=== PATIENT | female | born 1965 | race Two or more races ===

== ENCOUNTER 2018-02-09 05:48 | Inpatient (IN) ==
[~2018-02-09] VITALS: Ht 165.1 cm; Wt 76.2 kg
[2018-02-09] VITALS (7 sets, daily range): BP systolic 114–131; BP diastolic 72–91
--- NOTE | 2018-02-09 06:15 | NUR ---
MS RN OPENING NOTES: RECEIVED PT AND IS A/OX4. PT ON ROOM AIR AND TOLERATING WELL. NO SOB NOTED. IV TO BE STARTED FOR SURGERY. NO SOB NOTED. NO S/S OF DISTRESS. CALL LIGHT WITHIN PT'S REACH. BED KEPT IN LOW, LOCKED POSITION, AND SIDE RAILS X 2UP. WILL CONTINUE TO MONITOR PT.
[2018-02-09] MEDS ORDERED: HYDROMORPHONE INJ 2 MG/ML DISP.SYRIN ONE (06:33)
[2018-02-09] MEDS ORDERED: ANESTHESIA TRAY IN PYXIS 1 EA TRAY MC ONE (06:33)
[2018-02-09] MEDS ORDERED: ROCURONIUM BROMIDE 50 MG/5 ML ONE (06:33)
[2018-02-09] MEDS ORDERED: MIDAZOLAM HCL 2 MG/2ML VIAL ONE (06:33)
[2018-02-09] MEDS ORDERED: VANCOMYCIN 1 GM VIAL ONE (06:52)
[2018-02-09] MEDS ORDERED: BACITRACIN 50000 UNITS/VIAL ONE (06:52)
[2018-02-09] MEDS ORDERED: DESFLURANE 240 ML BOTTLE IH ONE (07:13)
[2018-02-09] MEDS ORDERED: PROPOFOL 200 ML ONE (07:13)
[2018-02-09] MEDS ORDERED: OXYC30TA2 PO (07:20)
[2018-02-09] MEDS ORDERED: ALPR2TAB7 PO (07:20)
[2018-02-09] MEDS ORDERED: CYCL10TA9 PO (07:20)
[2018-02-09] MEDS ORDERED: KETAMINE HCL (500MG/10ML) 50 MG/ML VIAL ONE (07:27)
[2018-02-09] MEDS ORDERED: GENTAMICIN 80 MG/2 ML VIAL ONE (08:32)
[2018-02-09] MEDS ORDERED: HEMOSTATIC MATRIX 10 ML 1 EACH PAD MC ONE (09:01)
[2018-02-09] MEDS ORDERED: BACITRACIN OPHTH OINT 3.5 GM TUBE ONE (11:22)
[2018-02-09] MEDS ORDERED: HYDROGEN PEROXIDE 480 ML BOTTLE ONE (12:33)
--- NOTE | 2018-02-09 14:00 | NUR ---
RN NOTES RECEIVED PATIENT FROM OR, ALERT AND ORIENTED X4, ABLE TO MAKE NEEDS KNOWN, ON OXYGEN SUPPORT VIA NASAL CANNULA WITH 3 LPM, SATURATING AT 99%, PLACED ON TELEMONITOR, SINUS RHYTHM HR AT 61 BPM, DENIES CHEST PAIN, PAIN ON THE SURGICAL SITE 01/04- WILL ADMINISTER PAIN MEDICATION, IV LINE G 18 ON THE LEFT AC AND G 20 ON THE LEFT HAND, INTACT AND IN PLACE, PATENT ON FLUSHING. PATIENT REORIENTED ON THE FLOOR, ENCOURAGED VERBALIZATION OF FEELINGS AND CONCERN, SAFETY MEASURES IN PLACE, ASPIRATION PRECAUTIONS IN PLACED, WILL CONTINUE TO ASSESS AND MONITOR PATIENT.
[2018-02-09] MEDS ORDERED: DOCUSATE SODIUM 250 MG CAPSULE PO PRN ×2 (14:30)
[2018-02-09] MEDS ORDERED: IV NS 0.9% 1,000 ML BAG IV PRN (14:30)
[2018-02-09] MEDS ORDERED: ONDANSETRON HCL/PF 4 MG/2 ML VIAL IV PRN (14:30)
[2018-02-09] MEDS ORDERED: HYDROMORPHONE MDV 30 MG in IV NS 0.9% 15 ML, PCA TOTAL VOLUME 1 BAG IV PRN ×3 (14:30)
[2018-02-09] MEDS ORDERED: HYDROCODONE/APAP 5/325MG 1 EACH TABLET PO PRN (14:30)
[2018-02-09] MEDS ORDERED: ALPRAZOLAM 0.25 MG TABLET PO PRN (14:30)
[2018-02-09] MEDS ORDERED: BISACODYL SUPP (10 MG) 10 MG/SUPP.RECT SUPP.RECT RC PRN ×2 (14:30)
[2018-02-09] MEDS ORDERED: NALOXONE HCL 0.4 MG/ML AMPUL IV PRN (14:30)
[2018-02-09] MEDS: IV NS 0.9% 1,000 ML IV PRN (15:13)
[2018-02-09] MEDS ORDERED: PHENOL/SODIUM PHENOLATE 1 BOTTLE MM PRN (17:30)
--- NOTE | 2018-02-09 19:30 | NUR ---
RN NOTES ENDORSED PATIENT FOR CONTINUITY OF CARE. NO ACUTE CHANGES WITHIN THE SHIFT, STILL ON OXYGEN SUPPORT VIA NASAL CANNULA WITH 3 LPM, SATURATING 100%, STILL ON SOLAR ENERGY TECHNICIAN (DILAUDID 1MG/ML) TOTAL OF 1.4 MG GIVEN SINCE ADMINISTRATION WAS STARTED. ALL NEEDS ATTENDED AND MET. CALL LIGHT WITHIN REACH AT ALL TIMES. SAFETY AND ASPIRATION MEASURES IN PLACE.
--- NOTE | 2018-02-09 20:00 | NUR ---
GOYO/RN NOTES: RECEIVED PT. IN BED W/ HOB ELEVATED. W/ FRIEND AT BEDSIDE. ON TELE MONITOR W/ SR @ 74. W/ DRESSING C/D/I TO THE NECK AREA W/ LEISA DRAIN INTACT W/ SEROSANGUINEOUS OUTPUT. CONTINENT OF BOWEL. F/C INTACT AND PATENT DRAINING VIA GRAVITY. W/ DILAUDID SUPERVISORY AIDE OF 0.2 MG Q 7 MIN. 4 HR LIMIT 6 MG. CALL LIGHT W/ REACH. ON CLEAR LIQUIDS. W/ RAC G 20 PATENT AND INTACT W/ NO S/S OF INFECTION/INFILTRATION NOTED. W/ LH G 18 PATENT AND INTACT W/ NO S/S OF INFECTION/INFILTRATION NOTED. ON CLEAR LIQUIDS. W/ SCD ON. DR. PEREZ CALLED X 2 W/ ORDERS NOTED AND CARRIED OUT. WILL CONTINUE TO MONITOR .
[2018-02-09] MEDS: ANCEF 1 GM/50 ML D5W IV SCH ×2 (20:19)
[2018-02-09] MEDS: ONDANSETRON HCL/PF 4 MG/2 ML VIAL IV PRN (21:43)
[2018-02-10] VITALS: BP 120/70
[2018-02-10] MEDS: ANCEF 1 GM/50 ML D5W IV SCH ×6 (03:14→20:26)
[2018-02-10] MEDS: ONDANSETRON HCL/PF 4 MG/2 ML VIAL IV PRN (03:36)
[2018-02-10] MEDS: ACETAMINOPHEN 325 MG TABLET PO PRN (03:57)
[2018-02-10] MEDS: IV NS 0.9% 1,000 ML IV PRN (03:58)
[2018-02-10 04:00] VITALS: BP 129/77
[2018-02-10 06:27] LABS: BASOPHILS % (AUTO) 0.2 % (0.0-2.0); EOSINOPHILS % (AUTO) 0.3 % (0.0-6.0); HEMATOCRIT 37 % (33-45); HEMOGLOBIN 11.1 g/dL (11.5-14.8); LYMPHOCYTES # (AUTO) 1.6 /CMM (0.8-4.8); LYMPHOCYTES % (AUTO) 15.6 % (20.0-44.0); MEAN CORPUSCULAR HGB CONC 30 g/dl (31.0-36.0); MEAN CORPUSCULAR VOLUME 76 fL (82-100); MONOCYTES # (AUTO) 0.6 /CMM (0.1-1.30); NEUTROPHILS # (AUTO) 7.8 /CMM (1.8-8.9); NEUTROPHILS % (AUTO) 77.9 % (43.0-81.0); PLATELET COUNT (AUTO) 318 /CMM (150-450); RDW COEFFICIENT OF VARIATION 29.6 (11.5-15.0); RED BLOOD CELL COUNT(AUTO) 4.94 MIL/uL (4.0-5.2); WHITE BLOOD COUNT (AUTO) 10.1 K/uL (4.3-11.0)
[2018-02-10 06:43] LABS: CALCIUM, SERUM 8.8 mg/dL (8.5-10.1); CREATININE 0.7 mg/dL (0.6-1.3); PHOSPHORUS 3.5 mg/dL (2.5-4.9)
[2018-02-10] MEDS ORDERED: KEY,NONCONTROL,TO KEEP IN PYXI 1 EA MC ONE ×2 (07:27→10:07)
[2018-02-10] MEDS ORDERED: HYDROMORPHONE 1 MG/1 ML DISP.SYRIN IV PRN (07:30)
[2018-02-10] MEDS ORDERED: oxyCODONE/APAP (5/325 MG) 1 UDTAB TABLET PO PRN ×2 (07:30→08:00)
--- NOTE | 2018-02-10 07:30 | NUR ---
RN NOTE RECEIVED PT AOX3, ON BED, NO SOB NOTED, HOD 45 DEGREE, SOIL CHECKER RUNNINGS BUT ACCORDING TO SOIL CHECKER PUMP PT REQUESTED ONLY ONE DOSE. PT CO PAIN 9/10 IN NECK. SOIL CHECKER PUMP TO D/C AT THIS TIME, IVF RUNNING NS AT 80 M/HR, IV SITES INTACT, PATENT, LEISA DRAIN IN PLACE MINIMAL OUTPUT, SEROSANGUINOUS COLOR, PT REPORTS SMALL MUSCLE SPASMS IN THE NECK AROUND THE DRAIN INSERTION SITE. PT HAS WEAKNESS IN HANDS RIGHT WEAKER THAN LEFT. ABLE TO MOVE LEGS AND FEET. CALL LIGHT WITHIN REACH, CLEAR LIQUID DIET ORDERED, ABLE TO SWALLOW CRUSHED MEDS WITH JELLO.
--- NOTE | 2018-02-10 07:49 | NUR ---
GOYO/RN NOTES: REPORT GIVEN TO AM NURSE FOR SIENNA.
[2018-02-10 08:00] VITALS: BP 119/71
[2018-02-10] MEDS: oxyCODONE/APAP (5/325 MG) 1 UDTAB TABLET PO PRN ×4 (08:49→22:05)
--- NOTE | 2018-02-10 09:40 | NUR ---
RN NOTE REPORT GIVEN TO TANIKA CHEN FOR SIENNA. PT STABLE.
--- NOTE | 2018-02-10 09:40 | NUR ---
RN NOTES RECEIVED PATIENT IN BED. ALERT AND ORIENTED X4, ABLE TO MAKE NEEDS KNOWN. ON OXYGEN SUPPORT VIA NASAL CANNULA WITH 3LPM, SATURATING WELL, DENIES ANY CHEST PAIN BUT WITH COMPLAINTS OF PAIN ON THE SURGERY SITE, WILL ADMINISTER DUE PAIN MEDICATION. SINUS RHYTHM ON TELE WITH HR AT 70'S, WITH LEISA DRAIN C/D/I DRAINING TO SEROSANGUINEOUS DRAINAGE, IVL: G 18 AND G 20 ON THE LEFT HAND BOTH IN PLACE, INTACT AND PATENT ON FLUSHING,PATIENT AMBULATORY, ENCOURAGE TO CALL FOR ASSISTANCE, CALL LIGHT WITHIN EASY REACH, WILL CONTINUE TO MONITOR AND ASSESS PATIENT CLOSELY.
--- NOTE | 2018-02-10 11:15 | NUR ---
RN NOTES PATIENT DONE ON PHYSICAL THERAPY AT THIS TIME. ABLE TO WALK ALONG THE HALLWAY WITH 4 POINT WALKER. BACK TO BED COMFORTABLY, PATIENT REFUSED ICD AT THIS TIME.
[2018-02-10 12:00] VITALS: BP 110/65
--- NOTE | 2018-02-10 14:00 | NUR ---
RN NOTES SEEN AND EXAMINED BY DR. GOMEZ. LEISA DRAIN REMOVED, WITH APPROXIMATELY 10 CC OF DRAINAGE, WOUND DRESSING REINFORCE. ENCOURAGE PATIENT TO VERBALIZE FEELINGS AND CONCERNS, WILL CONTINUE TO MONITOR PATIENT CLOSELY.
[2018-02-10] MEDS ORDERED: ALPRAZOLAM 0.25 MG TABLET PO PRN (14:30)
[2018-02-10 16:00] VITALS: BP 116/71
--- NOTE | 2018-02-10 19:37 | NUR ---
RN NOTES ENDORSED PATIENT FOR CONTINUITY OF CARE. NO ACUTE CHANGES WITHIN THE SHIFT. ALL NURSING NEEDS ATTENDED AND MET. ASPIRATION PRECAUTION AND SAFETY MEASURES IN PLACE. CALL LIGHT WITHIN REACH AT ALL TIMES.
--- NOTE | 2018-02-10 19:41 | NUR ---
GOYO RN OPENING NOTES REPORT RECEIVED FROM APRIL RN. PATIENT A/A/O X4, ABLE TO MAKE NEEDS KNOWN. BREATHING EVEN & UNLABORED, TOLERATING ROOM AIR. DENIES SOB OR DIFFICULTY BREATHING. ON TELE W/ SINUS TACH, HR 103. DENIES ANY CHEST PAIN OR DISCOMFORT. RIGHT AC #18 & LEFT HAND #20 INTACT & PATENT W/ DRESSING CDI, SALINE LOCKED. NECK SX SITE W/ DRESSING CLEAN, DRY & IN PLACE. C/O ACHING NECK & RIGHT SHOULDER PAIN LEVEL 7/10. PAIN MED TO BE GIVEN. SAFETY MEASURES MAINTAINED & CALL LIGHT WITHIN REACH. INSTRUCTED TO CALL FOR ASSISTANCE. WILL CONTINUE TO MONITOR.
[2018-02-10 20:00] VITALS: BP 121/66
[2018-02-10] MEDS: MENTHOL/CETYLPYRD (CEPACOL) 1 LOZ LOZENGE PO PRN (22:06)
[2018-02-11] VITALS: BP 119/68
[2018-02-11] MEDS: MENTHOL/CETYLPYRD (CEPACOL) 1 LOZ LOZENGE PO PRN ×2 (00:27→05:58)
[2018-02-11] MEDS: oxyCODONE/APAP (5/325 MG) 1 UDTAB TABLET PO PRN ×3 (01:59→23:52)
[2018-02-11 04:00] VITALS: BP 119/62
[2018-02-11] MEDS: ANCEF 1 GM/50 ML D5W IV SCH ×4 (04:11→11:08)
[2018-02-11 06:18] LABS: BASOPHILS % (AUTO) 0.7 % (0.0-2.0); EOSINOPHILS % (AUTO) 1.1 % (0.0-6.0); HEMATOCRIT 36 % (33-45); HEMOGLOBIN 10.7 g/dL (11.5-14.8); LYMPHOCYTES # (AUTO) 1.9 /CMM (0.8-4.8); LYMPHOCYTES % (AUTO) 27.9 % (20.0-44.0); MEAN CORPUSCULAR HGB CONC 30 g/dl (31.0-36.0); MEAN CORPUSCULAR VOLUME 76 fL (82-100); MONOCYTES # (AUTO) 0.5 /CMM (0.1-1.30); MONOCYTES % (AUTO) 7.9 % (2.0-12.0); NEUTROPHILS # (AUTO) 4.1 /CMM (1.8-8.9); NEUTROPHILS % (AUTO) 62.4 % (43.0-81.0); PLATELET COUNT (AUTO) 284 /CMM (150-450); RDW COEFFICIENT OF VARIATION 29.7 (11.5-15.0); RED BLOOD CELL COUNT(AUTO) 4.66 MIL/uL (4.0-5.2); WHITE BLOOD COUNT (AUTO) 6.7 K/uL (4.3-11.0)
[2018-02-11 07:14] LABS: CALCIUM, SERUM 8.2 mg/dL (8.5-10.1); CREATININE 0.7 mg/dL (0.6-1.3); POTASSIUM 4.2 mmol/L (3.5-5.1)
[2018-02-11] MEDS: ONDANSETRON HCL/PF 4 MG/2 ML VIAL IV PRN ×4 (07:31→23:42)
--- NOTE | 2018-02-11 07:53 | NUR ---
GOYO RN NOTE RECEIVED PATIENT IN BED , ALL NEEDS ATTENDED.ALERT , ORIENTED X4 , ON TELE MONITOR SR , NECK DRESSING INTACT NO BLEEDING NOTED , RT AC HL AND LT HAND HL INTACT, NO S\S INFECTION NOTED , NO SOB ,ON RA , C\O NOUSIA ZOFRAN IV GIVEN ORDERED, , PLAN OF CARE DISCUSES WITH PATIENT, CALL LIGHT WITHIN REACH, WILL CONT TO MONITOR CLOSELY , BED IN LOWEST AND LOCKED POSITION
[2018-02-11 08:00] VITALS: BP 121/71
--- NOTE | 2018-02-11 08:43 | NUR ---
GOYO RN NOTE SPOKE WITH DR GOMEZ , NOTIFIED THAT PATIENT C\O NAUSEA AND ZOFRAN WAS GIVEN EARLIER AND C\O CONSTIPATION ,WILL BE GIVEN COLACE , STILL IN PAIN, PERCOCET WILL BE GIVEN SOON, STSTED CONT CARE AND OK TO AMBULATE, WILL F\U AND MONITOR CLOSELY Addendum: 02/11/18 at 0941 by SHANE MEDINA RN ENCOURAGED TO AMBULATE TO RESTROOM. STATED I WILL DO LATTER ON. WILL F\U
--- NOTE | 2018-02-11 09:39 | NUR ---
MS TANIKA BAKER TELE MONITOR REMOVED. RESTING COMFORTABLY IN BED , NOT IN DISTRESS
--- NOTE | 2018-02-11 10:58 | NUR ---
MS RN NOTE PHYSICAL THERAPY AT BEDSIDE, PT ABLE TO AMBULATE WELL IN HALLWAY WITH WALKER, ASSISTED TO THE BATHROOM, ABLE TO URINATE WELL, WILL CONTINUE TO MONITOR WELL.
[2018-02-11] MEDS: ACETAMINOPHEN 325 MG TABLET PO PRN (11:13)
[2018-02-11] MEDS ORDERED: POLYETHYLENE GLYCOL 3350 17 GM POWD.PACK PO PRN (12:30)
--- NOTE | 2018-02-11 14:13 | NUR ---
MS SAGASTUME NOTES ENCOURAGE TO AMBULATE AGAIN, OFFERED MIRALAX, PT REFUSED. ZOFRAN WAS GIVEN 1200, TYLENOL WAS GIVEN 1200. WILL CONTINUE TO MONITOR. Addendum: 02/11/18 at 1530 by SHANE MEDINA RN MS SAGASTUME NOTES PT ENCOURAGED TO AMBULATE BUT DECLINED, WILL CONTINUE TO ENCOURAGE TO AMBULATE.
[2018-02-11 16:00] VITALS: BP 113/61
--- NOTE | 2018-02-11 16:42 | NUR ---
MS RN NOTE ZOFRAN AND PERCOCET GIVEN ORDERED , ALL NEEDS ATTENDED, ALSO C\O CONSTIPATING MIRALAX GIVEN , WILL F\U
--- NOTE | 2018-02-11 18:00 | NUR ---
MS RN NOTE OFFERED TO AMBULATE BUT STILL REFUSING STATED WILL DO TONIGHT LATTER ON WITH RN NEXT SHIFT ,WILL F\U
--- NOTE | 2018-02-11 18:27 | NUR ---
TLE RN NOTE ALL NEEDS ATTENDED, ABLE TO EAT SELF
--- NOTE | 2018-02-11 19:30 | NUR ---
MS RN OPENING NOTES REPORT RECEIVED FROM SHANE SAGASTUME. PATIENT A/O X4, ABLE TO MAKE NEEDS KNOWN. FIANCE AT BED SIDE. BREATHING EVEN & UNLABORED, TOLERATING ROOM AIR. DENIES SOB OR DIFFICULTY BREATHING. DENIES ANY CHEST PAIN OR DISCOMFORT. HAS C/O MILD NECK PAIN BUT REFUSES TO TAKE ANY PAIN MEDICINE AT THIS TIME. RIGHT AC #18, INTACT & PATENT W/ DRESSING CDI, SALINE LOCKED. NECK SX SITE DRESSING REMOVED BY DR GOMZE IN AM SHIFT, LEFT OPEN TO AIR, PER AM RN REPORT. ENCOURAGED PATIENT TO AMBULATE TOLERATED, PATIENT STATED WHEN SHE IS READY TO AMBULATE BEFORE SHE GOES TO SLEEP, SHE WILL LET THE NURSE KNOW. BED IN LOW LOCKED POSITION. SAFETY MEASURES MAINTAINED & CALL LIGHT WITHIN REACH. INSTRUCTED TO CALL FOR ASSISTANCE, VERBALIZED UNDERSTANDING. WILL CONTINUE TO MONITOR.
[2018-02-11 20:00] VITALS: BP 134/67
--- NOTE | 2018-02-11 23:52 | NUR ---
PRN ZOFRAN & PERCOCET GIVEN PATIENT VERBALIZED OF HAVING NECK PAIN 7/10 & WANTED TO TAKE PERCOCET 2 TABS, ALSO PT WANTED TO TAKE ZOFRAN BEFORE TAKING PERCOCET SINCE PATIENT FEELS NAUSEA. PRN ZOFRAN & PERCOCET GIVEN. WILL REASSESS FOR EFFECTIVENESS. MONITORING CLOSELY.
--- NOTE | 2018-02-12 03:00 | NUR ---
MS RN NOTE ZOFRAN & PERCOCET WAS EFFECTIVE, PATIENT NOTED TO BE DOZING OFF INTERMITTENTLY. FIANCE AT BED SIDE. WILL CONTINUE TO MONITOR.
[2018-02-12] MEDS: ONDANSETRON HCL/PF 4 MG/2 ML VIAL IV PRN ×2 (06:27→10:31)
[2018-02-12] MEDS: oxyCODONE/APAP (5/325 MG) 1 UDTAB TABLET PO PRN ×2 (06:32→10:34)
--- NOTE | 2018-02-12 06:41 | NUR ---
MS RN CLOSING NOTES PATIENT SLEPT INTERMITTENTLY AT NIGHT. A/O X4, ABLE TO MAKE NEEDS KNOWN. BREATHING EVEN & UNLABORED, TOLERATING ROOM AIR. DENIES SOB OR DIFFICULTY BREATHING. DENIES ANY CHEST PAIN OR DISCOMFORT. HAD C/O NECK PAIN 11/03, PRN PAIN MEDICINE GIVEN, WILL ENDORSE TO AM RN TO REASSESS THE PT FOR PAIN MANAGEMENT. RIGHT AC #18, INTACT & PATENT W/ DRESSING CDI, SALINE LOCKED. ENCOURAGED PATIENT TO AMBULATE TOLERATED, VERBALIZED UNDERSTANDING. BED IN LOW LOCKED POSITION. PATIENT FINISHED MIRALAX THROUGH OUT THE NIGHT, WHICH WAS GIVEN BY AM RN. PER PT SHE COULD NOT FINISH IT ALL AT ONCE, PT SIPPED IT. WILL ENDORSE TO AM RN TO MONITOR FOR BM. SAFETY MEASURES MAINTAINED & CALL LIGHT WITHIN REACH. WILL ENDORSE TO AM RN FOR CONTINUITY OF CARE.
[2018-02-12 07:34] LABS: BASOPHILS # (AUTO) 0.1 /CMM (0.0-0.2); BASOPHILS % (AUTO) 1.1 % (0.0-2.0); EOSINOPHILS % (AUTO) 2.4 % (0.0-6.0); HEMATOCRIT 38 % (33-45); HEMOGLOBIN 11.8 g/dL (11.5-14.8); LYMPHOCYTES # (AUTO) 2.1 /CMM (0.8-4.8); LYMPHOCYTES % (AUTO) 40.7 % (20.0-44.0); MEAN CORPUSCULAR HGB CONC 31 g/dl (31.0-36.0); MEAN CORPUSCULAR VOLUME 75 fL (82-100); MONOCYTES # (AUTO) 0.5 /CMM (0.1-1.30); MONOCYTES % (AUTO) 8.9 % (2.0-12.0); NEUTROPHILS # (AUTO) 2.4 /CMM (1.8-8.9); NEUTROPHILS % (AUTO) 46.9 % (43.0-81.0); PLATELET COUNT (AUTO) 279 /CMM (150-450); RED BLOOD CELL COUNT(AUTO) 5.12 MIL/uL (4.0-5.2); WHITE BLOOD COUNT (AUTO) 5.2 K/uL (4.3-11.0)
--- NOTE | 2018-02-12 07:39 | NUR ---
MS RN NOTE RECEIVED PATIENT IN BED , ALL NEEDS ATTENDED.ALERT , ORIENTED X4 , NECK S\P SURGERY INCISION NO BLEEDING NOTED , RT AC HL AND LT HAND , NO S\S INFECTION NOTED , NO SOB ,ON RA , PLAN OF CARE DISCUSES WITH PATIENT, CALL LIGHT WITHIN REACH, WILL CONT TO MONITOR CLOSELY , BED IN LOWEST AND LOCKED POSITION ,NO C\O NAUSEA OR PAIN AT THIS TIME
[2018-02-12 07:51] LABS: CALCIUM, SERUM 9.2 mg/dL (8.5-10.1); CREATININE 0.7 mg/dL (0.6-1.3); MAGNESIUM 1.8 mg/dL (1.8-2.4); PHOSPHORUS 3.8 mg/dL (2.5-4.9); POTASSIUM 3.4 mmol/L (3.5-5.1)
[2018-02-12 08:00] VITALS: BP 123/70
[2018-02-12] MEDS ORDERED: POTASSIUM CHLORIDE 20 MEQ TAB.PRT.SR PO ONE (08:30)
[2018-02-12] MEDS ORDERED: MAGNESIUM CITRATE 296 ML BOTTLE PO ONE (08:30)
--- NOTE | 2018-02-12 09:00 | NUR ---
MS RN NOTE SEEN BY PT BUT PATIENT REFUSED TO DO, WILL TRY AGAIN
--- NOTE | 2018-02-12 09:00 | NUR ---
MS RN NOTE SEEN BY REHANA RN GARBAGE TRUCK HELPER WITH ORDER KCL AND MAG FOR CONSTIPATION, AWARE THAT K 3.4
--- NOTE | 2018-02-12 10:39 | NUR ---
MS RN NOTE PERCOCET AND ZOFRAN FOR NAUSEA AND PAIN GIVEN, WILL F\U
--- NOTE | 2018-02-12 13:26 | NUR ---
BRANCH OFFICE ADMINISTRATOR NOTE PER DR GOMEZ OK TO DISCHARGE TO HOME , PX GIVEN AND EXPLAINED HOW TO TAKE AND POSSIBLE SIDE EFFECTS AND UNDERSTOOD , INSTRUCTED TO FOLLOW UP WITH PRIMARY CARE DOCTOR AND DR GOMEZ ,BELONGING SIGNED, FIANCEE AT BEDSIDE
--- NOTE | 2018-02-12 14:11 | NUR ---
MS RN NOTE WENT HOME WITH STABLE CONDITION ON W\C WITH STARCH MANGLE TENDER HL REMOVED, NO S\S INFECTION NOTED. NO BLEEDING NOTED
== END 2018-02-12 14:11 | disposition home or self-care (01) | DRG 472 ==
LOC: DS 05:48 → MEDSG1 05:56 → TELE-TD 14:11 → MEDSG1 02-11 08:44
PROVIDERS: ADMIT Specialist; ATTEND Specialist
DX: M48.02 Spinal stenosis, cervical region (principal); M96.0 Pseudarthrosis after fusion or arthrodesis; M50.11 Cervical disc disorder with radiculopathy, high cervical region; M54.16 Radiculopathy, lumbar region; F41.9 Anxiety disorder, unspecified; D50.9 Iron deficiency anemia, unspecified; E83.51 Hypocalcemia; G89.4 Chronic pain syndrome; R11.2 Nausea with vomiting, unspecified; T50.905A Adverse effect of unspecified drugs, medicaments and biological substances, initial encounter; Y92.239 Unspecified place in hospital as the place of occurrence of the external cause
CPT/HCPCS: 36415; 72040-TC; 80048-TC; 83735-TC; 84100-TC; 84702-TC; 85025-TC; 86850-TC; 86921-TC; 87081-TC; 88300-TC; 97110-TC; 97116-TC; 97530-TC; A4216; A4606; A6253; A6402; G0378; J0690; J1100; J1170; J1580; J2250; J2405; J2704; J3370; J3490; J7030; J7060; Z7610